=== PATIENT | male | born 1995 | race Hispanic/Latino ===

== ENCOUNTER 2017-02-05 05:52 | Emergency (ER) | payer OTHER ==
[~2017-02-05] VITALS: Ht 170.2 cm; Wt 70.3 kg
[2017-02-05] MEDS ORDERED: KETOROLAC 30 MG/ML VIAL (J1885) IV ONE (07:45)
[2017-02-05] MEDS ORDERED: ONDANSETRON 4MG/2ML VIAL (J2405) IV ONE (07:45)
[2017-02-05] MEDS ORDERED: NS 1,000 ML IV ONE (07:45)
[2017-02-05 08:15] LABS: ALBUMIN 4.8 GM/DL (3.2-5.2); ALBUMIN/GLOBULIN RATIO 1.26 (1.00-1.93); ALKALINE PHOSPHATASE 145 U/L (45-117); ALT/SGPT 30 U/L (12-78); ANION GAP 10 MEQ/L (8-16); AST/SGOT 14 U/L (15-37); BILIRUBIN,TOTAL 1.3 MG/DL (0.2-1.0); BLOOD UREA NITROGEN 17 MG/DL (7-18); CALCIUM LEVEL 9.4 MG/DL (8.5-10.1); CARBON DIOXIDE LEVEL 25 MEQ/L (21-32); CHLORIDE LEVEL 106 MEQ/L (98-107); CREATININE FOR GFR 1.46 MG/DL (0.70-1.30); GLOMERULAR FILTRATION RATE > 60.0 (>60); GLUCOSE, FASTING 142 MG/DL (70-105); POTASSIUM SERUM 4.7 MEQ/L (3.5-5.1); SODIUM LEVEL 141 MEQ/L (136-145); TOTAL PROTEIN 8.6 GM/DL (6.4-8.2)
[2017-02-05 08:28] LABS: MEAN CORPUSCULAR HEMOGLOBIN 31.5 pg (27.0-33.0); MEAN CORPUSCULAR HGB CONC 35.1 g/dl (32.0-36.5); MEAN CORPUSCULAR VOLUME 89.9 fl (80.0-96.0); RED CELL DISTRIBUTION WIDTH 13.2 % (11.5-14.5); WHITE BLOOD COUNT 16.8 K/mm3 (4.0-10.0)
[2017-02-05] MEDS ORDERED: ZOFR4TAB3 PO (09:13)
[2017-02-05] MEDS ORDERED: BENT20TA PO (09:13)
[2017-02-05] MEDS ORDERED: AUGM875T27 PO (09:13)
[2017-02-05] MEDS ORDERED: IBUP80TA PO (09:13)
[2017-02-05] MEDS ORDERED: AUGMENTIN 875 MG TAB PO ONE ×2 (09:15→09:45)
[2017-02-05] MEDS ORDERED: ONDANSETRON 4 MG ORAL DISINTEGRATING TAB (S0181) PO ONE ×2 (09:15→09:45)
[2017-02-05] MEDS ORDERED: DICYCLOMINE 10 MG CAP PO ONE ×2 (09:15→09:45)
[2017-02-05 09:35] VITALS: BP 111/54
== END 2017-02-05 09:46 | disposition home or self-care (01) ==
LOC: M ED 07:10
DX: R11.2 Nausea with vomiting, unspecified (principal); R19.7 Diarrhea, unspecified; J02.0 Streptococcal pharyngitis
CPT/HCPCS: 80053; 83690; 85027; 87804; 87880; 96361; 96374; 96375; 99282; J1885; J2405

== ENCOUNTER 2017-08-07 09:28 | Emergency (ER) | payer OTHER ==
[~2017-08-07] VITALS: Ht 170.2 cm; Wt 85.9 kg
[2017-08-07 09:28] VITALS: BP 136/75
[~2017-08-07 09:28] MED LIST: AUGM875T28 PO; BENT20TA PO; IBUP80TA PO; ZOFR4TAB3 PO
[2017-08-07] MEDS ORDERED: KEFL500C17 PO (10:16)
[2017-08-07] MEDS ORDERED: FLUTISP (10:18)
[2017-08-07] MEDS ORDERED: ALBU17IN INH (10:20)
== END 2017-08-07 10:29 | disposition home or self-care (01) ==
LOC: M ED 09:28
DX: J32.9 Chronic sinusitis, unspecified (principal); J45.909 Unspecified asthma, uncomplicated

== ENCOUNTER → 2017-12-05 | Outpatient (CLI) | payer OTHER ==
[~2017-12-05] MED LIST changes: -AUGM875T28 PO; -BENT20TA PO; -IBUP80TA PO; +METHACHOLINE KIT (J7674) INH; -ZOFR4TAB3 PO
== END ==
LOC: M CARPUL 08:00
DX: R06.02 Shortness of breath (principal)